=== PATIENT | male | born 1970 | race Hispanic/Latino ===

== ENCOUNTER 2017-02-14 04:09 | Emergency (ER) | payer SELFPAY ==
[2017-02-14 04:32] VITALS: BMI 24.1
--- NOTE | 2017-02-14 04:34 | ED PDOC ---
Addendum entered and electronically signed by Jennifer Stallworth DO 02/14/17 05:13: Physical Exam - Physical Exam Extremity: Other (raised skin and fluid-filled structure over elbow) Original Note: Arrival/HPI <Jennifer Stallworth - Last Filed: 02/14/17 05:11> <Lam Jason - Last Filed: 02/14/17 19:45> - General Chief Complaint: Upper Extremity Problem/Injury Time Seen by Provider: 02/14/17 04:32 - History of Present Illness Narrative History of Present Illness (Text): 02/14/17 04:51 46 y/o M presents w/ abnormal Left elbow. Pt states it happened overnight. Pt has never experienced this before. 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 Pt reports leaning on his elbow while at work. Pt denies any recent injury or trauma to the area; deneis any repetitive motion. Pt denies join pain, F/C. (Jennifer Stallworth ) Past Medical History - Provider Review Nursing Documentation Reviewed: Yes <Jennifer Stallworth - Last Filed: 02/14/17 05:11> Family/Social History Family/Social History: No Known Family HX <Jennifer Stallworth - Last Filed: 02/14/17 05:11> Allergies/Home Meds <Jennifer Stallworth - Last Filed: 02/14/17 05:11> <Lam Jason - Last Filed: 02/14/17 19:45> Allergies/Adverse Reactions: Allergies No Known Allergies Allergy (Verified 02/14/17 04:58) Home Medications: Home Meds Medication Instructions Recorded Confirmed No Known Home Med 02/14/17 02/14/17 Review of Systems - Physician Review All systems were reviewed & negative as marked: Yes - Review of Systems Constitutional: absent: Fevers Musculoskeletal: absent: Arthralgias <Jennifer Stallworth - Last Filed: 02/14/17 05:11> Physical Exam Vital Signs Reviewed: Yes Temperature: Afebrile Blood Pressure: Hypertensive Pulse: Regular Respiratory Rate: Normal Appearance: Positive for: Well-Appearing, Non-Toxic, Comfortable Pain Distress: None Mental Status: Positive for: Alert and Oriented X 3 - Systems Exam Head: Present: Atraumatic, Normocephalic Pupils: Present: PERRL Conjunctiva: Present: Normal Upper Extremity: Present: Normal ROM, NORMAL PULSES, Swelling (distal elbow), Erythema (distal arm), Deformity (L elbow). No: Tenderness, Temperature Abnormalties Neurological: Present: GCS=15, Speech Normal Skin: Present: Warm, Dry Psychiatric: Present: Alert, Oriented x 3, Normal Insight, Normal Concentration , Normal Affect, Normal Mood <Jennifer Stallworth - Last Filed: 02/14/17 05:11> Medical Decision Making <Jnenifer Stallworth - Last Filed: 02/14/17 05:11> <Lam Jason - Last Filed: 02/14/17 19:45> ED Course and Treatment: 02/14/17 04:55 46 y/o M w/ bursitis of L elbow. - warm compress - Motrin 600mg (Jennifer Stallworth) Pt seen and evaluated with resident. Pt seen and evaluated with resident. Aware and agree with HPI, clinical findings, plan, and management. Aware and agree with HPI, clinical findings, plan, and management. Plan: -- Motrin -- Reassess and disposition Progress Notes: (Lam Jason) - Medication Orders Current Medication Orders: Discontinued Medications Ibuprofen (Motrin Tab) 600 mg PO STAT STA Stop: 02/14/17 04:59 Last Admin: 02/14/17 05:08 Dose: 600 mg - PA / [employer] / Resident Statement BARRERA has reviewed & agrees with the documentation as recorded. BARRERA has examined the patient and agrees with the treatment plan. <Lam Jason - Last Filed: 02/14/17 19:45> Disposition/Present on Arrival - Present on Arrival Any Indicators Present on Arrival: No - Disposition Have Diagnosis and Disposition been Completed?: Yes Disposition Time: 04:58 <Jennifer Stallworth - Last Filed: 02/14/17 05:11> <Lam Jason - Last Filed: 02/14/17 19:45> - Disposition Diagnosis: Bursitis of left elbow Disposition: HOME/ ROUTINE Condition: GOOD Discharge Instructions (ExitCare): Elbow Bursitis (ED) Additional Instructions: Take Ibuprofen/Motrin/Advil 600mg Q6 apply Warm compresses to the area follow up w/ orthopedics if worsens or does not improve.
[2017-02-14 04:41] VITALS: BP 153/97; PULSE 96; RESP 18; TEMP 97.8; O2SAT 99
== END 2017-02-14 05:11 | disposition home or self-care (01) ==
LOC: ED 04:09
DX: M70.32 Other bursitis of elbow, left elbow (principal)